=== PATIENT | female | born 1965 | race African-American/Black ===

== ENCOUNTER 2020-04-15 11:22 | Emergency (ER) | payer BC ==
--- NOTE | 2020-04-15 14:50 | ER ---
Nurse's Notes [facility] Name: Beba Carpenter Age: 54 yrs Sex: Female : 1965 Arrival Date: 04/15/2020 Time: 11:30 Bed 12 Private MD: Diagnosis: Acute upper respiratory infection, unspecified Presentation: 04/15 11:31 Chief complaint: Patient states: headache and cough x 2-3 days. "I just don't want to ss take any chances". Coronavirus screen: Surgical mask placed on patient. Patient moved to private room, placed in contact and droplet isolation with eye protection until further assessment. Patient reports a cough. Patient reports shortness of breath or difficulty breathing. Patient denies measured and/or subjective temperature greater than 100.4F prior to today's visit. Patient denies travel on a cruise ship or to a country the [facility] currently lists as an affected area. Patient denies contact with known and/or suspected case of COVID-19. Ebola Screen: Patient denies exposure to infectious person. Patient denies travel to an Ebola-affected area in the 21 days before illness onset. Initial Sepsis Screen: Does the patient meet any 2 criteria? No. Patient's initial sepsis screen is negative. Does the patient have a suspected source of infection? No. Patient's initial sepsis screen is negative. Risk Assessment: Do you want to hurt yourself or someone else? Patient reports no desire to harm self or others. Onset of symptoms was April 12, 2020. 11:31 Method Of Arrival: Ambulatory ss 11:31 Acuity: JAZIEL 4 ss Historical: - Allergies: 11:33 No Known Allergies; ss - Immunization history:: Adult Immunizations not up to date. - Social history:: Smoking status: Patient denies any tobacco usage or history of. Screenin:23 Abuse screen: Denies threats or abuse. Denies injuries from another. Nutritional ss screening: No deficits noted. Tuberculosis screening: Never had TB. Fall Risk None identified. Assessment: 14:23 General: Appears in no apparent distress. comfortable, Behavior is calm, cooperative. ss General: Pt reports she has had an headache and a cough for 2 days, but feels better. Wants to be on the safe side and get checked for covid. Pain: Denies pain. Neuro: Level of Consciousness is awake, alert, obeys commands, Oriented to person, place, time, situation. Respiratory: Airway is patent Respiratory effort is even, unlabored, Respiratory pattern is regular, symmetrical. GI: Patient currently denies diarrhea, nausea, vomiting. EENT: Oral mucosa is moist. Derm: Skin is intact, is healthy with good turgor, Skin is pink, warm \\T\\ dry. normal. Musculoskeletal: Circulation, motion, and sensation intact. Range of motion: intact in all extremities, Swelling absent. Vital Signs: 11:31 BP 165 / 105; Pulse 89; Resp 16; Temp 97.6(TE); Pulse Ox 100% on R/A; Weight 97.52 kg; ss Height 5 ft. 2 in. (157.48 cm); Pain 0/10; 11:31 Body Mass Index 39.32 (97.52 kg, 157.48 cm) ED Course: 11:30 Patient arrived in ED. fj1 11:33 Triage completed. ss 11:33 Arm band placed on right wrist. ss 14:23 Patient has correct armband on for positive identification. Bed in low position. Call ss light in reach. 14:42 Fletcher Andrade MD is Attending Physician. kdr 15:04 Candida Maurice RN is Primary Nurse. ss 15:04 No provider procedures requiring assistance completed. Patient did not have IV access ss during this emergency room visit. Administered Medications: No medications were administered Outcome: 14:49 Discharge ordered by . kdr 15:04 Discharged to home ambulatory. ss 15:04 Condition: good 15:04 Discharge instructions given to patient, Instructed on discharge instructions, follow up and referral plans. medication usage, Demonstrated understanding of instructions, follow-up care, medications, Prescriptions given X 2. 15:05 Patient left the ED. ss Addendum: 04/17/2020 17:46 Addendum: COVID-19 Result: Positive result giiven to ED physician to notify pt. s s Physician was able to contact pt and pt was notified of positive COVID-19 swab result. Physician answered pt questions. Other: notified by Dr. Andrade. Signatures: Fletcher Andrade MD MD kdr Candida Maurice RN RN Alf Chen [facility] Corrections: (The following items were deleted from the chart) 04/15 13:45 11:31 Acuity: JAZIEL 5 ss ss
--- NOTE | 2020-04-15 14:50 | EDPHYS ---
Physician Documentation [facility] Name: Beba Carpenter Age: 54 yrs Sex: Female : 1965 Arrival Date: 04/15/2020 Time: 11:30 Bed 12 Private MD: ED Physician Fletcher Andrade HPI: 04/15 15:39 This 54 yrs old Black Female presents to ER via Ambulatory with complaints of Headache, kdr Cough. 16:00 The patient or guardian reports cough, that is intermittent, described as mild, kdr difficulty breathing. Onset: The symptoms/episode began/occurred gradually, 3 day(s) ago. Modifying factors: The symptoms are alleviated by nothing. the symptoms are aggravated by nothing. Associated signs and symptoms: Pertinent positives: fever. Severity of symptoms: At their worst the symptoms were very mild in the emergency department the symptoms are unchanged. The patient has experienced similar episodes in the past, a few times. The patient has not recently seen a physician. 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 Historical: - Allergies: 11:33 No Known Allergies; ss - Immunization history:: Adult Immunizations not up to date. - Social history:: Smoking status: Patient denies any tobacco usage or history of. ROS: 16:00 Constitutional: Negative for fever, chills, and weight loss, Eyes: Negative for injury, kdr pain, redness, and discharge, Neck: Negative for injury, pain, and swelling, Cardiovascular: Negative for chest pain, palpitations, and edema, Respiratory: Negative for shortness of breath, cough, wheezing, and pleuritic chest pain, Abdomen/GI: Negative for abdominal pain, nausea, vomiting, diarrhea, and constipation, Back: Negative for injury and pain, : Negative for injury, bleeding, discharge, and swelling, MS/Extremity: Negative for injury and deformity, Skin: Negative for injury, rash, and discoloration, Neuro: Negative for headache, weakness, numbness, tingling, and seizure activity. Psych: Negative for depression, anxiety, suicide ideation, homicidal ideation, and hallucinations, Allergy/Immunology: Negative for hives, rash, and allergies, Endocrine: Negative for neck swelling, polydipsia, polyuria, polyphagia, and marked weight changes, Hematologic/Lymphatic: Negative for swollen nodes, abnormal bleeding, and unusual bruising. Exam: 16:00 Constitutional: This is a well developed, well nourished patient who is awake, alert, kdr and in no acute distress. Head/Face: Normocephalic, atraumatic. Eyes: Pupils equal round and reactive to light, extra-ocular motions intact. Lids and lashes normal. Conjunctiva and sclera are non-icteric and not injected. Cornea within normal limits. Periorbital areas with no swelling, redness, or edema. Neck: Trachea midline, no thyromegaly or masses palpated, and no cervical lymphadenopathy. Supple, full range of motion without nuchal rigidity, or vertebral point tenderness. No Meningismus. Chest/axilla: Normal chest wall appearance and motion. Nontender with no deformity. No lesions are appreciated. Cardiovascular: Regular rate and rhythm with a normal S1 and S2. No gallops, murmurs, or rubs. Normal PMI, no JVD. No pulse deficits. Respiratory: Lungs have equal breath sounds bilaterally, clear to auscultation and percussion. No rales, rhonchi or wheezes noted. No increased work of breathing, no retractions or nasal flaring. Abdomen/GI: Soft, non-tender, with normal bowel sounds. No distension or tympany. No guarding or rebound. No evidence of tenderness throughout. Back: No spinal tenderness. No costovertebral tenderness. Full range of motion. Skin: Warm, dry with normal turgor. Normal color with no rashes, no lesions, and no evidence of cellulitis. MS/ Extremity: Pulses equal, no cyanosis. Neurovascular intact. Full, normal range of motion. Neuro: Awake and alert, GCS 15, oriented to person, place, time, and situation. Cranial nerves II-XII grossly intact. Motor strength 5/5 in all extremities. Sensory grossly intact. Cerebellar exam normal. Normal gait. Psych: Awake, alert, with orientation to person, place and time. Behavior, mood, and affect are within normal limits. Vital Signs: 11:31 BP 165 / 105; Pulse 89; Resp 16; Temp 97.6(TE); Pulse Ox 100% on R/A; Weight 97.52 kg; ss Height 5 ft. 2 in. (157.48 cm); Pain 0/10; 11:31 Body Mass Index 39.32 (97.52 kg, 157.48 cm) MDM: 14:49 Patient medically screened. kdr 16:00 Data reviewed: vital signs, nurses notes, lab test result(s). Counseling: I had a kdr detailed discussion with the patient and/or guardian regarding: the historical points, exam findings, and any diagnostic results supporting the discharge/admit diagnosis, lab results, radiology results. 04/15 14:48 Order name: COVID-19 [facility] Administered Medications: No medications were administered Disposition: 04/15/20 14:49 Discharged to Home. Impression: Acute upper respiratory infection, unspecified. - Condition is Stable. - Discharge Instructions: Upper Respiratory Infection, Adult, COVID-19. - Prescriptions for Tessalon Perles 100 mg Oral Capsule - take 1 capsule by ORAL route every 8 hours As needed; 15 capsule. Albuterol Sulfate 90 mcg/actuation - inhale 1-2 puff by INHALATION route every 4-6 hours; 1 Inhaler. - Medication Reconciliation Form, Thank You Letter form. - Follow up: Private Physician; When: 2 - 3 days; Reason: If symptoms return, Further diagnostic work-up, Recheck today's complaints, Continuance of care, Re-evaluation by your physician. - Problem is an ongoing problem. - Symptoms are unchanged. Signatures: Dispatcher [employer] EDWA Fletcher Andrade MD MD [facility] Candida Maurice RN RN Corrections: (The following items were deleted from the chart) 15:05 14:49 04/15/2020 14:49 Discharged to Home. Impression: Acute upper respiratory ss infection, unspecified. Condition is Stable. Forms are Medication Reconciliation Form, Thank You Letter, Antibiotic Education, Prescription Opioid Use. Follow up: Private Physician; When: 2 - 3 days; Reason: If symptoms return, Further diagnostic work-up, Recheck today's complaints, Continuance of care, Re-evaluation by your physician. Problem is an ongoing problem. Symptoms are unchanged. kdr
[2020-04-15 15:14] VITALS: BP 165/105; TEMP 97.6; O2SAT 100
== END 2020-04-15 15:05 | disposition home or self-care (01) ==
LOC: ER 11:22
DX: U07.1 COVID-19 (principal); J06.9 Acute upper respiratory infection, unspecified
CPT/HCPCS: 99282; U0001